=== PATIENT | female | born 1960 | race Caucasian/White ===

== ENCOUNTER 2018-09-18 01:14 | Inpatient (IN) | payer SELFPAY, MEDICAID ==
[2018-09-18] MEDS: ONDANSETRON 4 MG INJ IV ×2 (02:04→09:04)
[2018-09-18] MEDS: SOD CHLORIDE 0.9% 1,000 ML IV ×3 (02:04→17:35)
[2018-09-18] MEDS: morphine 4 MG/ML VIAL IV ×2 (02:04→03:35)
[2018-09-18 02:22] LABS: ADD MAN DIFF? NO
[2018-09-18 02:22] LABS: WHITE BLOOD COUNT 13.7 10^3/ul (4.8-10.8)
[2018-09-18 02:23] LABS: BASOPHILS % 0.2 % (0.0-2.0); EOSINOPHILS # 0.1 10^3/ul (0.0-0.5); EOSINOPHILS % 0.5 % (0.0-7.0); HEMATOCRIT 40.3 % (37.0-47.0); HEMOGLOBIN 13.3 g/dl (12.0-16.0); LYMPHOCYTES # 2.1 10^3/ul (0.8-2.9); LYMPHOCYTES % 15.4 % (15.0-51.0); MEAN CORPUSCULAR HEMOGLOBIN 29.8 pg (29.0-33.0); MEAN CORPUSCULAR VOLUME 90.2 fl (82.0-101.0); MEAN PLATELET VOLUME 10.2 fl (7.4-10.4); MONOCYTE # 0.6 10^3/ul (0.3-0.9); MONOCYTES % 4.4 % (0.0-11.0); NEUTROPHIL # 10.9 10^3/ul (1.6-7.5); NEUTROPHILS % 79.2 % (39.0-77.0); PLATELET COUNT 239 10^3/UL (140-415); RED BLOOD COUNT 4.47 10^6/ul (4.20-5.40); RED CELL DISTRIBUTION WIDTH 11.5 % (11.5-14.5)
[2018-09-18 02:39] LABS: ALANINE AMINOTRANSFERASE 22 IU/L (13-69); ALBUMIN 3.9 g/dl (3.3-4.9); ALBUMIN/GLOBULIN RATIO 1.14; ALKALINE PHOSPHATASE 79 IU/L (42-121); ANION GAP 9 (5-13); ASPARTATE AMINO TRANSFERASE 22 IU/L (15-46); BILIRUBIN,INDIRECT 0.5 mg/dl (0-1.1); BILIRUBIN,TOTAL 0.5 mg/dl (0.2-1.3); BLOOD UREA NITROGEN 14 mg/dl (7-20); CALCIUM 8.7 mg/dl (8.4-10.2); CARBON DIOXIDE 28 mmol/L (21-31); CHLORIDE 106 mmol/L (97-110); CREATININE 0.55 mg/dl (0.44-1.00); Estimated GFR > 60 mL/min (>60); GLUCOSE 117 mg/dl (70-220); LIPASE 75 U/L (23-300); POTASSIUM 4.1 mmol/L (3.5-5.1); SODIUM 143 mmol/L (135-144); TOTAL PROTEIN 7.3 g/dl (6.1-8.1)
[2018-09-18 03:02] LABS: ADD UMIC YES; UR ASCORBIC ACID NEGATIVE (NEGATIVE); UR BACTERIA FEW /HPF (NONE SEEN); UR BILIRUBIN (Dip) NEGATIVE (NEGATIVE); UR BLOOD (Dip) NEGATIVE (NEGATIVE); UR CALCIUM CARBONATE CRYSTALS MAN /HPF (NONE SEEN); UR CLARITY TURBID (CLEAR); UR COLOR YELLOW (YELLOW); UR GLUCOSE (Dip) NEGATIVE (NEGATIVE); UR KETONES (Dip) TRACE mg/dL (NEGATIVE); UR LEUKOCYTE ESTERASE (Dip) TRACE Leu/ul (NEGATIVE); UR MUCUS FEW /HPF (NONE SEEN); UR NITRITE (Dip) NEGATIVE (NEGATIVE); UR RBC 7 /HPF (0-5); UR SPECIFIC GRAVITY (Dip) 1.024 (1.003-1.030); UR SQUAMOUS EPITHELIAL CELL FEW /HPF (FEW); UR TOTAL PROTEIN (Dip) 1+ mg/dl (NEGATIVE); UR UROBILINOGEN (Dip) NEGATIVE (NEGATIVE); UR WBC 28 /HPF (0-5)
[2018-09-18] MEDS: AMPICILLIN/SULB 3 GM/NS (PMX) 100 ML IVPB (03:43)
[2018-09-18] MEDS: HYDROmorphONE 0.5 MG/0.5 ML SYG IV (04:38)
[2018-09-18] MEDS ORDERED: ACETAMINOPHEN 325 MG TAB PO ×2 (05:00→05:30)
[2018-09-18] MEDS ORDERED: DOCUSATE SODIUM 100 MG CAP PO (05:30)
[2018-09-18] MEDS ORDERED: BISACODYL (EC) 5 MG TAB PO (05:30)
[2018-09-18] MEDS ORDERED: ONDANSETRON 4 MG INJ IV ×3 (05:30→09:00)
[2018-09-18] MEDS ORDERED: NACL 0.9% 3 ML SYG IV (05:30)
[2018-09-18] MEDS ORDERED: DESFLURANE 15 MIN (07:00)
[2018-09-18] MEDS ORDERED: LIDOCAINE 1%/EPI 30 ML INJ (07:08)
[2018-09-18] MEDS ORDERED: BUPIVACAINE 0.25% (MPF) 30 ML INJ (07:08)
[2018-09-18] MEDS: D5W-0.45 NACL + KCL 20 MEQ 1,000 ML IV ×4 (07:20→23:23)
[2018-09-18] MEDS ORDERED: PROPOFOL 20 ML (07:25)
[2018-09-18] MEDS ORDERED: ROCURONIUM 50 MG INJ (07:25)
[2018-09-18] MEDS ORDERED: LIDOCAINE 1% (MDV) 20 ML INJ (07:26)
[2018-09-18] MEDS ORDERED: MIDAZOLAM 1 MG/ML 2 ML INJ (07:26)
[2018-09-18] MEDS ORDERED: FENTAnyl 50 MCG/ML VIAL (07:26)
[2018-09-18] MEDS ORDERED: morphine 4 MG/ML VIAL IV (07:30)
[2018-09-18] MEDS: KETOROLAC 30 MG INJ IV ×4 (07:30→19:30)
[2018-09-18] MEDS ORDERED: ROPIVACAINE 0.5 % 30 ML VIAL (07:31)
[2018-09-18] MEDS: PIPER-TAZO 3.375 GM IV (PMX) 100 ML IVPB ×4 (08:00→23:58)
[2018-09-18] MEDS ORDERED: NEOSTIGMINE 3 MG/3 ML SYRINGE (08:03)
[2018-09-18] MEDS ORDERED: GLYCOPYRROLATE 1 MG INJ (08:03)
[2018-09-18] MEDS ORDERED: SUGAMMADEX SODIUM 200 MG/2 ML VIAL IV (08:20)
[2018-09-18] MEDS ORDERED: LABETALOL HCL 20MG INJ IV (09:00)
[2018-09-18] MEDS ORDERED: hydrALAzine 20 MG INJ IV (09:00)
[2018-09-18] MEDS: HYDROmorphONE 1 MG/5 ML IV SYRINGE IV ×5 (09:04→10:38)
[2018-09-18] MEDS ORDERED: PIPER-TAZO 3.375 GM IV (PMX) 100 ML IVPB (12:00)
[2018-09-18] MEDS: morphine 2 MG INJ IV (18:10)
[2018-09-19] MEDS: ACETAMINOPHEN 325 MG TAB PO (00:01)
[2018-09-19] MEDS: KETOROLAC 30 MG INJ IV ×2 (01:22→08:42)
[2018-09-19 05:04] LABS: ADD MAN DIFF? NO
[2018-09-19 05:19] LABS: BASOPHILS % 0.4 % (0.0-2.0); EOSINOPHILS # 0.1 10^3/ul (0.0-0.5); EOSINOPHILS % 1.4 % (0.0-7.0); HEMATOCRIT 31.1 % (37.0-47.0); LYMPHOCYTES # 2.7 10^3/ul (0.8-2.9); LYMPHOCYTES % 37.8 % (15.0-51.0); MEAN CORPUSCULAR HEMOGLOBIN 29.5 pg (29.0-33.0); MEAN CORPUSCULAR HGB CONC 32.2 g/dl (32.0-37.0); MEAN CORPUSCULAR VOLUME 91.7 fl (82.0-101.0); MEAN PLATELET VOLUME 10.3 fl (7.4-10.4); MONOCYTE # 0.4 10^3/ul (0.3-0.9); MONOCYTES % 5.7 % (0.0-11.0); NEUTROPHIL # 3.9 10^3/ul (1.6-7.5); NEUTROPHILS % 54.4 % (39.0-77.0); PLATELET COUNT 196 10^3/UL (140-415); RED BLOOD COUNT 3.39 10^6/ul (4.20-5.40)
[2018-09-19 05:19] LABS: WHITE BLOOD COUNT 7.1 10^3/ul (4.8-10.8)
[2018-09-19] MEDS: SOD CHLORIDE 0.9% 1,000 ML IV (05:42)
[2018-09-19] MEDS: PIPER-TAZO 3.375 GM IV (PMX) 100 ML IVPB ×2 (05:57→12:26)
[2018-09-19 05:59] LABS: ALANINE AMINOTRANSFERASE 422 IU/L (13-69); ALBUMIN 2.8 g/dl (3.3-4.9); ALKALINE PHOSPHATASE 72 IU/L (42-121); ANION GAP 5 (5-13); ASPARTATE AMINO TRANSFERASE 234 IU/L (15-46); BILIRUBIN,INDIRECT 0.6 mg/dl (0-1.1); BILIRUBIN,TOTAL 0.6 mg/dl (0.2-1.3); BLOOD UREA NITROGEN 7 mg/dl (7-20); CARBON DIOXIDE 30 mmol/L (21-31); CHLORIDE 104 mmol/L (97-110); CREATININE 0.66 mg/dl (0.44-1.00); Estimated GFR > 60 mL/min (>60); GLUCOSE 102 mg/dl (70-220); MAGNESIUM 2.2 mg/dl (1.7-2.5); POTASSIUM 3.9 mmol/L (3.5-5.1); SODIUM 139 mmol/L (135-144); TOTAL PROTEIN 5.4 g/dl (6.1-8.1)
[2018-09-19 06:00] LABS: ALBUMIN/GLOBULIN RATIO 1.07; CHOL/HDL RATIO 2.2 RATIO; CHOLESTEROL 86 mg/dl (100-200); HDL CHOLESTEROL 39 mg/dl (37-92); LDL CHOLESTEROL,CALCULATED 37 mg/dl; TRIGLYCERIDES 51 mg/dl (0-149)
[2018-09-19] MEDS ORDERED: ENOXAPARIN 40 MG/0.4 ML SYG SC (07:00)
[2018-09-19 08:30] LABS: HEMOGLOBIN A1C 5.3 % (0-5.9)
[2018-09-19] MEDS: ENOXAPARIN 40 MG/0.4 ML SYG SC (08:43)
[2018-09-19] MEDS: HYDROCODONE/APAP (5/325) TAB PO (12:26)
== END 2018-09-19 13:45 | disposition home or self-care (01) | DRG 343 ==
LOC: E/R 01:14 → REC 04:32 → MS1 10:01
PROC: 0DTJ4ZZ Resection of Appendix, Percutaneous Endoscopic Approach (ICD-10-PCS; principal; 2018-09-18 07:00)
DX: K35.80 Unspecified acute appendicitis (principal); I10 Essential (primary) hypertension; F32.9 Major depressive disorder, single episode, unspecified
CPT/HCPCS: 36415; 74176; 80053; 80061; 81001; 83036; 83690; 83735; 84443; 85025; 87086; 88304; 96361; 96365; 96375; 96376; 99285-25